=== PATIENT | female | born 1975 | race African-American/Black ===

== ENCOUNTER 2018-03-25 07:16 | Emergency (ER) | payer SELFPAY ==
[~2018-03-25] VITALS: Ht 160 cm; Wt 64.0 kg
[2018-03-25] MEDS ORDERED: LIDOCAINE HCL/PF 1% 10 MG/ML 5ML VIAL IJ ONE (09:00)
[2018-03-25] MEDS ORDERED: BACITRACIN ZINC OINT UDPKT TOP ONE (09:00)
[2018-03-25] MEDS ORDERED: TETANUS, DIPHTHERIA, PERTUSSIS VAC/PF 0.5ML (>7YR OLD) IM ONE (09:00)
[2018-03-25] MEDS ORDERED: KETOROLAC 60MG/2ML VIAL IM ONE (09:00)
[2018-03-25 09:10] VITALS: BP 110/92
== END 2018-03-25 13:00 | disposition home or self-care (01) ==
LOC: ER 08:03
DX: T63.301A Toxic effect of unspecified spider venom, accidental (unintentional), initial encounter (principal); L02.416 Cutaneous abscess of left lower limb; Y92.89 Other specified places as the place of occurrence of the external cause; F17.210 Nicotine dependence, cigarettes, uncomplicated
CPT/HCPCS: 81025; 90471; 90715; 96372; 99284; J1885; J3490

== ENCOUNTER 2018-11-15 09:02 | Emergency (ER) | payer SELFPAY ==
[~2018-11-15] VITALS: Ht 160 cm; Wt 65.0 kg
[2018-11-15] MEDS: KETOROLAC 30MG/ML VIAL IM ONE (10:16)
[2018-11-15 10:45] VITALS: BP 111/60
== END 2018-11-15 11:22 | disposition home or self-care (01) ==
LOC: ER 09:02
DX: J02.0 Streptococcal pharyngitis (principal); J45.909 Unspecified asthma, uncomplicated; F14.10 Cocaine abuse, uncomplicated; Z98.890 Other specified postprocedural states
CPT/HCPCS: 81025; 87430; 96372; 99283; J1885

== ENCOUNTER 2022-03-04 05:59 | Emergency (ER) | payer MEDICAID ==
[~2022-03-04] VITALS: Ht 175.3 cm; Wt 77.0 kg
[2022-03-04 06:02] VITALS: BP 140/90
== END 2022-03-04 11:20 | disposition left against medical advice (07) ==
LOC: ER 05:59
DX: Z53.21 Procedure and treatment not carried out due to patient leaving prior to being seen by health care provider (principal)

== ENCOUNTER 2022-03-27 12:20 | Emergency (ER) | payer MEDICAID ==
[~2022-03-27] VITALS: Ht 167.6 cm; Wt 59.0 kg
[2022-03-27 12:21] VITALS: BP 107/74
[2022-03-27] MEDS ORDERED: KETOROLAC 60MG/2ML VIAL IM ONE (12:30)
[2022-03-27] MEDS ORDERED: CYCL10TA21 MT (12:44)
[2022-03-27] MEDS ORDERED: IBUP-2029 MT (12:44)
== END 2022-03-27 13:03 | disposition home or self-care (01) ==
LOC: ER 12:20
DX: M54.16 Radiculopathy, lumbar region (principal)
CPT/HCPCS: 96372; 99283; J1885